=== PATIENT | male | born 1990 | race Caucasian/White ===

== ENCOUNTER → 2018-02-03 14:09 | Outpatient (CLI) | payer BC, SELFPAY ==
[2018-02-03 11:25] VITALS: BMI 40.1
--- OUTSIDE RECORDS SUMMARY | 2018-03-31 23:52 | XMS RPT_ITS ---
:1990 Author Organization OHIP Care Team Providers Name Role Phone NO, DOCTOR ON Consulting Unavailable MERCEDES TREVINO MD Primary Care Unavailable MERCEDES TREVINO MD Attending Unavailable MERCEDES TREVINO MD Admitting Unavailable DR AVI JADE Admitting Unavailable YASMANY, DR AVI Lazo Attending Unavailable FEDE ORTEGA MD Referring Unavailable DR AVI JADE Primary Care Unavailable FEDE ORTEGA MD Consulting Unavailable PROVIDER, UNKNOWN Consulting Unavailable PROVIDER, UNKNOWN Consulting Unavailable PROVIDER, UNKNOWN Consulting Unavailable FEDE ORTEGA MD Admitting Unavailable FEDE ORTEGA MD Attending Unavailable FEDE ORTEGA MD Primary Care Unavailable FEDE ORTEGA MD Consulting Unavailable PROVIDER, UNKNOWN Consulting Unavailable PROVIDER, UNKNOWN Consulting Unavailable PROVIDER, UNKNOWN Consulting Unavailable RODRICK, NAVA PAC Admitting Unavailable RODRICK, NAVA PAC Attending Unavailable RODRICK, NAVA PAC Primary Care Unavailable FEDE ORTEGA MD Consulting Unavailable PROVIDER, UNKNOWN Consulting Unavailable PROVIDER, UNKNOWN Consulting Unavailable PROVIDER, UNKNOWN Consulting Unavailable Wesley Briseno Attending Unavailable Wesley Briseno Attending Unavailable Wesley Briseno Referring Unavailable PROBLEMS PROBLEMS DATE TYPE CONDITION / CODE ATTENDING STATUS SOURCE 02/03/2018 Unknown J02.9 - Acute Wesley Briseno Active [facility] pharyngitis, Community unspecified / Hospital J02.9(ICD-10) Repository 04/23/2017 Principle Encounter for FEDE ORTEGA Active Jaime Pomerene Diagnosis screening for [facility] lipoid disorders / Hospital I69516(ICD-10) Repository 04/23/2017 Secondary Encounter for FEDE ORTEGA Active Jaime Pomerene Diagnosis screening for [facility] diabetes mellitus / Hospital Z131(ICD-10) Repository 04/23/2017 Secondary Encounter for other FEDE ORTEGA Active Jaime Pomerene Diagnosis specified special [facility] examinations / Hospital Z0189(ICD-10) Repository 03/30/[address] AVI JADE Active Jaime Pomerene Diagnosis dependence, [facility] unspecified, Hospital uncomplicated / Repository R09948(ICD-10) 03/30/2017 Admitting Diarrhea, DR AVI JADE Active Jaime Pomerene Diagnosis unspecified / [facility] R197(ICD-10) Hospital Repository 03/30/2017 Principle Diarrhea, DR AVI JADE Active Jaime Pomerene Diagnosis unspecified / [facility] R197(ICD-10) Hospital Repository 03/30/2017 Secondary Vomiting, DR AVI JADE Active Jaime Pomerene Diagnosis unspecified / [facility] R1110(ICD-10) Hospital Repository 03/30/[address] AVI JADE Active Jaime Pomerene Diagnosis abdominal pain / [facility] R109(ICD-10) Hospital Repository 03/19/2017 Admitting Pain in left hip / ANDREA, Active Jaime Pomerene Diagnosis S22173(ICD-10) MERCEDES TAN [facility] Repository 03/19/2017 Principle Strain of muscle, ANDREA, Active Jaime Pomerene Diagnosis fascia and tendon MERCEDES TAN [facility] of left hip, Hospital initial encounter / Repository L19619U(ICD-10) PROCEDURES PROCEDURES No Procedure Records FoundRESULTS RESULTS Observed: 02/03/2018 Status: F Source: [place] SOSA, R/O STREP A 2:43 PM [facility] REPOSITORY ROSALINE Culture No Streptococcus group A isolated. * This cultures intended use is to screen for Beta Streptococcus A only. All other pathogens and potential pathogens will not be screened for or reported. If a complete workup of all potential pathogens is indicated an order for a routine throat culture is required. Performed By: #### M100.010 #### [facility] [place], [address] URGENT CARE VISIT Observed: 02/03/2018 Status: F Source: [place] REPORT 11:52 AM [facility] REPOSITORY [facility] [address] [place] [address] OFFICE VISIT Date of Service: 02/03/18 MR#: [id number] Acct: [id number] Name: ARLETTE CHRISTIANSON Rep #: [id number] : 1990 Provider: Wesley GALLEGOS Age/Sex: 27/M [place] [facility] Status: Signed Intake Vital Signs02/03/18 Height 6 ft 1 in 02/03/18 Weight: 304 lb 02/03/18 Body Mass Index (BMI) 40.1 02/03/18 Blood Pressure 130/90 H 02/03/18 Blood Pressure Location Lt brachial 02/03/18 Blood Pressure Position Sitting Intake Visit Reasons: URI SYMPTOMS Chief Complaint: sore throat Commercial Administrator Required: No Accompanied by: girlfriend Is patient in pain?: No Allergies No Known Allergies Allergy (Unverified 02/03/18 11:26) Medications meloxicam 7.5 mg tablet 7.5 mg PO DAILY 02/03/18 [History Confirmed 02/03/18] PFSH Medical History History of undescended testicle (Acute) Surgical History History of surgical procedure on eye proper using laser (Acute) Family History Other Diabetes Hypertension Multiple sclerosis Social History Smoking Status: Current every day smoker alcohol intake: current HPI HPI Chief Complaint: sore throat Details: ARLETTE CHRISTIANSON, is a 27 M who presents to the office today for initial evaluation approximately 48-hour history of sore throat, chills, congestion. No complaints of fever, sweats, rash, cough, chest pain/shortness of breath. Patient is a non-smoker, noting his live in girlfriend has similar symptoms. No ajkr-gnt-hdcicjf products have been tried to assist with symptoms. He notes no other associated symptoms and no other alleviating or aggravating factors. ROS Const Constitutional: Positive for other (ROS negative x10 other than as noted above) Exam Const General: cooperative, healthy appearing, no acute distress Nutritional Appearance: obese Orientation: alert, awake, oriented x3 HENMT Head: normal to inspection Ears: hearing grossly normal bilaterally, external ears normal, TM's normal bilaterally, EAC's normal Nose: external nose normal, nares normal, septum normal, no nasal discharge Face and sinus: normal facial exam, face symmetric, sinuses nontender Mouth: oral mucosae normal, lip normal, tongue normal Teeth and gingiva: gingiva normal, dentition normal Throat: uvula midline, posterior oropharynx normal, no postnasal drainage, abnormal tonsil bilaterally hypertrophy 2+ (Rapid strep test today negative therefore culture sent to lab for further evaluation) Eyes General: appearance normal, both eyes and all related structures Neck Neck: normal visual inspection, full ROM, no lymphadenopathy, no meningeal signs, supple Neck mass: No Thyroid: thyroid normal Lymphatic: no lymphadenopathy noted Chest Chest palpation AND inspection: normal inspection of the chest Resp Effort AND Inspection: normal respiratory effort, able to speak in complete sentences Auscultation: Bilateral: Clear to Auscultation Cardio Palpation: normal PMI Rate: regular rate Rhythm: regular rhythm Heart Sounds: S1 normal, S2 normal, no gallops, no murmurs, no rubs Pulses: radial pulses present GI Inspection: normal to inspection Palpation: soft, no hepatosplenomegaly Skin General: no rashes or lesions noted Neuro General: alert, awake, oriented x3, gait normal Cognition: normal cognition Speech: speech normal Gait: normal gait Motor: muscle tone normal throughout Sensory Exam: no sensory deficits noted Psych Appearance: grossly normal Mental Status: mental status grossly normal Mood: congruent mood Affect: normal affect Speech and Movement: speech and movement normal Attitude: cooperative Thought Process: normal Thought Content: normal Judgment: judgment good Results BMSRAPIDSTREPA Office Rapid Strep A Negative Last Edit by Constance Mcnally on 02/03/18 11:39 Assessment AND Plan Problems 1. Pharyngitis J02.9 Plan Patient aware today's rapid strep test is negative therefore culture sent to lab for further evaluation. Clear fluid, rest, Advil/Tylenol, saltwater gargles as needed for symptom relief. Follow-up PCP in 5-7 days should symptoms not improve, sooner should symptoms worsen or any other concerns develop. Patient states acknowledging understanding all the above. This note was generated with [employer] software. It may contain incorrect words, spelling, and punctuation that were not noted in checking the note before signing. Orders Orders: Coding Level of Care Code Off vis,new,level 3 Diagnoses Pharyngitis J02.9 02/03/18 1152 <Electronically signed by Wesley GALLEGOS> Date Wesley GALLEGOS Cosigner Signature: Date (if applicable) CC: EMERGENCY REPORT Observed: 09/05/2017 Status: F Source: [facility] 7:46 PM [facility] EMERGENCY DEPARTMENT REPORT NAME NUMBER SEX AGE ADMIT DISC TYPE MED.RECORD# MEGHAN Pang [id number] M 26 03/19/17 03/19/17 E.RHima [id number] ROOM:ER-E DATE OF :1990 PHYSICIAN NO.:[id number] PHYSICIAN NAME:PAMELA TREVINO MD PHYSICIAN: FAMILY PHYSICIAN: NO DOCTOR CHIEF COMPLAINT: Hip pain on left side. HISTORY OF PRESENT ILLNESS: The patient has soreness and aching to the left hip in certain positions. No severe radiation to his back or legs. He has had x-rays a few months ago for similar pain. He works a factory job. He describes the pain as sharp and aching. It is worse with certain positions and better at rest and with laying down. No numbness or tingling. No weakness of the leg. He now recalls he was helping his father move, and he was doing heavy lifting up and down steps with some of the heavy furniture pieces. His pain is sharp and aching, worse with internal and external rotation and certain positions. PAST MEDICAL HISTORY: See the nursing notes. SOCIAL HISTORY: He does smoke. He does not drink. PHYSICAL EXAMINATION: On evaluation, our gentleman is EOMI, PERRL. Mentation is awake and alert. Vital signs are stable in all areas. He is 290 pounds. Reflexes of the knees and ankles are good. Pulses to the feet and warmth to the feet are good. Hip flexion causes mild pain. Hip flexion with internal rotation causes significant sharp pain. When he stands, he can hip flex to a mild degree without pain. Abduction does not hurt much but slightly. When he stretches and pushes his foot behind him, the front hip flexor stretch increases the pain. He has no difficulty ambulating. The right hip is unremarkable. His belly is benign without pain on palpation or distress on palpation. EMERGENCY DEPARTMENT COURSE AND TREATMENT: I think the gentleman has a strain of his hip flexors, likely from carrying furniture up and down steps. He would be squatting to pick these up and then go up and down the ramp and steps. I think the climbing and the decelerating down the ramp increased his pain. X-rays have been recent and were negative. DIAGNOSIS: Left hip flexor strain. PLAN/DISPOSITION: We will plan to discharge with Tylenol, Motrin and a few Flexeril for muscle soreness. Heating pad and recheck with his doctor next week. Off work today. D: Pamela Trevino MD TD: 11:28 JOB #: [id number] Electronically signed by: PAMELA TREVINO MD 09/05/17 19:46 Transcribed by: martina 03/20/2017 08:43 EMERGENCY ROOM REPORT MEGHAN Pang 1 EMERGENCY DEPARTMENT Observed: 04/02/2017 Status: F Source: [facility] SUMMARY 7:48 AM [facility] EMERGENCY DEPARTMENT SUMMARY NAME NUMBER SEX AGE ADMIT DISC TYPE MED.RECORD# MEGHAN Pang [id number] M 26 03/30/17 03/30/17 E.R. [id number] ROOM:ER-I DATE OF :1990 PHYSICIAN NO.:[id number] PHYSICIAN NAME:ZARINA Jade M.D. PHYSICIAN:Constantino Ortega M.D. HISTORY OF PRESENT ILLNESS: The patient came in. The patient was not feeling well. He had diarrhea around 10 a.m. and then he started having vomiting. He had some abdominal discomfort, some body aches, chills, occasional headache, and just not feeling well and he presents to the emergency department. He has had hip pain. PAST MEDICAL HISTORY: Unremarkable. PAST SURGICAL HISTORY: He has had a descended testicle when he was a child. SOCIAL HISTORY: He does smoke. He does drink alcohol occasionally. REVIEW OF SYSTEMS: Ten systems reviewed and negative except as mentioned above. PHYSICAL EXAMINATION: The patient is afebrile. Pulse 102, respirations 16, blood pressure 133/76, and pulse ox 98% on room air. Head is normocephalic and atraumatic. Eyes: Pupils are equal, round, and reactive to light. Extraocular muscles intact. Nares are patent. Throat has adequate moisture. Uvula is midline. Neck is supple without petechiae or rash. Heart without murmur. S1 equals S2. No S3 or S4 appreciated. Lungs are clear to auscultation bilaterally. No rales, rhonchi, or retractions. Abdomen is soft, nontender, and nondistended. Skin is warm and dry. EMERGENCY DEPARTMENT COURSE AND TREATMENT: The patient was given Zofran. He kept a bottle of Gatorade down. He feels better, not totally well, but feels much better. DIAGNOSES: 1. Vomiting and diarrhea. 2. Abdominal pain 3. Probable viral syndrome. PLAN/DISPOSITION: He is going to go home. I did write him off of work for tomorrow and the next day. He was told to stop smoking. He was discharged in stable condition. D: Shaan Almodovar DO TD: 00:11 JOB #: [id number] Electronically signed by: TUCKERNAMMelania 04/02/17 07:47 Transcribed by: padilla 03/31/2017 20:08 ELECTRONICALLY SIGNED BY: ZARINA Almodovar D.O. 04/02/17 07:47 ALLERGIES ALLERGIES DATE TYPE / CODE NAME / CODE REACTION SEVERITY SOURCE 02/03/2018 Drug No Known Unknown [facility] [place] Allergy/124718879(S Allergies/F0019 [facility] [place]OMED [place]) [address](RXNORM) Hospital Repository Miscellaneous No Known Drug Moderate Jaime Pomereverena Allergy/072059619(S Allergies (Severity [facility] NOMED CT) Modifier) Hospital (Qualifier Repository Value) ENCOUNTERS ENCOUNTERS ADMIT/DISCHARGE ACCOUNT ADMITTING ENCOUNTER LOCATION SOURCE NUMBER CLASS 02/03/2018 [id number] Ambulatory [facility] [place] [facility] [place] [facility] ing:LABSPEC Repository 02/03/2018/ [id number] Ambulatory BMSBuilding:B [facility] 8 3 [facility] Repository 08/27/2017 [id number] RODRICK, Ambulatory Jaime ROMAN [facility] Repository 04/23/2017 [id number] JORDAN, Ambulatory [facility] FEDE TAN [facility] Repository 03/30/2017/ [id number] DR AVI JADE [facility] [place] [address] C oom: ERBed: I [facility] Repository 03/19/2017/ [id number] ANDREA, Emergency [address] [place] [address] 8 MERCEDES TAN oom: ERBed: E [facility] Repository PAYERS PAYERS ENCOUNTER GUARANTOR PAYER SUBSCRIBER SOURCE 02/03/2018 ARLETTE M Primary ARLETTE V[place] [id number] Insurance:ANTHEMPolicy TANKERSLEYDOB: [facility] JOAN WHITE Number: [id number], [id number] [place]ository [place] [address]Dsf: ve Date:2734-46-35AQ [address]QR[address], [facility]) [id number]: 02/03/2018 Secondary NOT GIVENUNK [facility] Insurance:SELF PAY [facility] Number: Effective Repository Date:2018-02-03 02/03/2018 ARLETTE M Primary ARLETTE Amayaoster [id number] Insurance:ANTHEMPolicy TANKERSLEYDOB: [facility] Number: [id number] [facility], [id number] [place]ository [place] [address]Mcm: ve Date:9706-66-51HA [address]DGGEZYU, [facility]) [address]NT: 02/03/2018 Secondary NOT GIVENUNK [facility] Insurance:SELF PAY [facility] Number: Effective Repository Date:2018-02-03 08/27/2017 ARLETTE Primary ARLETTE Brock TANKERSLEYDOB: Insurance:ANTHEM BLUE TANKERSLEYDOB: [facility] [id number] [employer] [id number] [facility] Repository [facility], Number: [place], [place] [address]Gnm: [id number] [place] [id number] ve Date:Plan Name:B2 () 04/23/2017 ARLETTE Primary ARLETTE Brock TANKERSLEYDOB: Insurance:MEDICAL TANKERSLEYDOB: [facility] Number: [id number] [facility] [id number] [place] Repository [facility], Date:Plan Name:[facility] [address]M[place]: [place] [id number] () 03/30/2017 ARLETTE Primary ARLETTE Brock TANKERSLEYDOB: Insurance:SHELLEY BANKS TANKERSLEYDOB: [facility] [id number] [place] [address] Repository [facility], Number: RDSHREVMelania [facility] [id number]: [id number] [id number] Date:Plan Name:V1 () 03/30/2017 Secondary ARLETTE Brockne Insurance:ONEIDA TANKERSLEYDOB: [facility] [id number] [place] [address] Repository Number: [place], [id number] [address] Date: 03/19/2017 ARLETTE Pang Primary ARLETTE Brock TANKERSLEYDOB: Insurance:SHELLEY BANKS TANKERSLEYDOB: [facility] [id number] [place] [address] Repository [facility], Number: RDSHREVMelania [facility] [id number]: [id number] Date:Plan Name:V1 () 03/19/2017 Secondary ARLETTE Altamiranoerene Insurance:ONEIDA TANKERSLEYDOB: [facility] [id number] [place] [address] Repository Number: STMILLEJEANINE, [id number] [place] [address] Date:
== END ==
PROVIDERS: Referring Provider Physician Assistant; Visit Provider Physician Assistant
DX: J02.9 Acute pharyngitis, unspecified (principal)
CPT/HCPCS: 87081

== ENCOUNTER 2018-10-18 18:53 | Emergency (ER) | payer BC, SELFPAY ==
[2018-02-03 11:25] VITALS: BMI 40.1
[2018-10-18 18:54] VITALS: BP 153/79; PULSE 105; RESP 18; TEMP 36.5; O2SAT 96; BMI 39.5
--- NOTE | 2018-10-18 20:52 | ED.DCSUM_ITS ---
History of Present Illness Chief Complaint: Itching Informant: Patient Onset: Today Context: Sudden Onset Timing: Continuous Quality: Generalized itching Location: Generalized Current Severity: Moderate Worsened by: Nothing Relieved by: Nothing Associated Symptoms: No associated symptoms Narrative: Patient presents with generalized itching. He denies liver disease. Denies change in color his urine or stool. He denies discoloration of his eyes or skin. He has not been bit by anything. He did not have any to eat that may have caused this to his knowledge. He denies swelling of his lips, tongue or throat. He denies shortness of breath. He denies nausea vomiting. Denies diarrhea. Denies orthostatic symptoms. Denies cardiac respiratory symptoms. Prior similar symptoms: No Recent Illness/Hospitalization: No - Past Medical History (1) No significant past medical history Status: Acute Past Medical History - Allergies and Home Meds Allergies/Adverse Reactions: Allergies No Known Allergies Allergy (Unverified 02/03/18 11:26) Prior records reviewed: No Past Medical History: None Surgical History: no surgical history Lives: Alone Smoking Status: Current every day smoker Alcohol: Occasional Drugs: None Review of Systems General: Denies: Chills, Fever, Sweats Eyes: Denies: Visual changes - bilaterally, Diplopia ENT: Denies: Rhinorrhea, Sore throat Cardiovascular: Denies: Chest pain, Palpitations Respiratory: Denies: Dyspnea, Cough, Dyspnea on exertion Gastrointestinal: Denies: Abdominal pain, Nausea, Vomiting, Diarrhea, Melena, Hematochezia Genitourinary: Denies: Dysuria, Hematuria, Frequency Musculoskeletal: Denies: Back pain, Extremity Pain Skin: Reports: - - Generalized itching. Denies: Rash, Abscess, Abrasions, Wounds Neurological: Denies: Headache, Weakness, Numbness Hematologic: Denies: Easy bruising, Easy bleeding Allergy: Denies: Uticaria, Swelling of the mouth, Swelling of the tongue Physical Exam Vital Signs/Narrative: Vital Signs Temp Pulse Resp BP Pulse Ox 10/18/18 18:54 97.7 F L 105 H 18 153/79 H 96 Inital Vital Signs reviewed: Yes General: Well nourished, Well developed, No Acute Distress Head: Normocephalic, Atraumatic Eyes: Perrl, EOMI ENT: Moist mucous membranes, No rhinorrhea, TM's clear, - - Trachea is midline. There is no stridor. There is no evidence of angioedema. Neck: Supple, Nontender Cardiovascular: Regular rate, Regular rhythm, No murmurs Respiratory: No distress, CTA bilaterally, Chest nontender Abdomen: Soft, Nontender, Nondistended, Normal bowel sounds Back: Nontender, Normal Inspection Extremities: Nontender, No edema Skin: Normal color, No rash, - - Areas of excoriation from itching. There is redness uncertain whether it is because he has been itching or reaction. There is no hives. Neurological: Alert, Oriented x3, Cranial nerves II-XII grossly intact, Normal Strength, Normal Sensation Psychological: Normal affect, Normal Mood Diagnostic/Tx/Re-eval Laboratory Results 10/18/18 10/18/18 20:30 20:30 WBC 9.4 RBC 4.84 Hgb 15.0 Hct 42.0 MCV 86.8 MCH 31.0 MCHC 35.7 RDW Std Deviation 37.5 RDW Coeff of Jemal 11.9 Plt Count 250 MPV 10.1 Immature Gran % (Auto) 0.300 Neut % (Auto) 66.5 Lymph % (Auto) 25.6 Rusk % (Auto) 5.8 Eos % (Auto) 1.3 Baso % (Auto) 0.5 Absolute Neuts (auto) 6.3 Absolute Lymphs (auto) 2.41 Nucleated RBC % 0 Sodium 138 Potassium 3.9 Chloride 107 Carbon Dioxide 26.0 Anion Gap 5 BUN 15 Creatinine 1.10 Estim Creat Clear Calc 111.98 Est GFR (MDRD) Af Amer 101 Est GFR (MDRD) Non-Af 84 BUN/Creatinine Ratio 13.6 Glucose 93 Calcium 8.7 Total Bilirubin 0.60 AST 26 ALT 46 Alkaline Phosphatase 91 Total Protein 7.7 Albumin 4.0 Globulin 3.7 Albumin/Globulin Ratio 1.1 Laboratory evaluations unremarkable. - Medical Decision Making CBC was obtained to assess for eosinophilia. Conference of metabolic panel was obtained to assess liver test to determine if his bilirubin is elevated etc. He was treated with IV Pepcid and Benadryl. Will reassess in 60 minutes. Patient was reassessed at 2230. His rash and itching is resolved. Patient was instructed to follow-up with his doctor. He states he is presently between doctors. He was instructed to contact human resources determine who is on his insurance panel. He was told he needs to be tested to determine what caused the reaction. ED Disposition - Plan for ED Patient: Disposition: Home or Assisted Living Diagnosis: Pruritic erythematous rash Instructions: ALLERGIC REACTION, Other (General) Prescriptions: DiphenhydrAMINE [Benadryl] 25 mg PO 4X/DAY #10 cap Transmission Status: Pending to [facility]/pharmacy #[id number] Famotidine [Pepcid] 20 mg PO BID #10 tab Transmission Status: Pending to [facility]/pharmacy #[id number] Additional Instructions: Your prescription was electronically transmitted to [facility] pharmacy located on back [facility]. Contact human resources to determine who is on your insurance plan to have allergy testing to determine what caused your red itchy rash.
[2018-10-18] MEDS: DiphenhydrAMINE 50 MG/ML Syringe 25 MG IV (20:55)
[2018-10-18 21:02] LABS: Absolute Lymphocyte Count 2.41 X10^3/uL (0.83-4.51); Absolute Neutrophil Count 6.3 X10^3/uL (2.0-7.7); Basophil# 0.05 X10^3/uL; Basophil% 0.5 % (0-1); Eosinophil# 0.12 X10^3/uL; Eosinophils% 1.3 % (0-5); Lymphocyte # 2.41 X10^3/ul (4.0); Lymphocyte % 25.6 % (19-41); Mean Corp Hgb Conc 35.7 g/dL (32-36); Mean Corpuscular Volume 86.8 fL (80-94); Mean Platelet Vol. 10.1 fl (6.2-12.0); Monocyte# 0.55 X10^3/uL; Monocyte% 5.8 % (0-10); NRBC Flagged by Analyzer 0 % (0-5); Neutrophil # 6.27 X10^3/uL (2.7-7.7); Neutrophil % 66.5 % (47-70); Platelet Count 250 K/mm3 (150-450); RBC Distribution Width CV 11.9 % (11.6-14.6); RBC Distribution Width SD 37.5 fl (35.1-43.9); Red Blood Count 4.84 M/mm3 (4.6-6.2); White Blood Count 9.4 K/mm3 (4.4-11.0)
[2018-10-18 21:13] LABS: ALB/GLOB Ratio 1.1 RATIO (0.9-2.4); AST(SGOT) 26 U/L (15-37); Alanine Aminotransfer ALT/SGPT 46 U/L (16-61); Alkaline Phosphatase 91 U/L (45-117); Anion Gap 5 (5-15); BUN 15 mg/dL (7-18); BUN/Creat Ratio 13.6 RATIO (10-20); Calcium,Total 8.7 mg/dL (8.5-10.1); Chloride 107 mmol/L (98-107); EST Glomerular Filtration Rate 84 mL/min (>60); Est Glom Filt Rate - Afr Amer 101 mL/min (>60); Estimated Creatinine Clearance 111.98 ml/min; Globulin 3.7 g/dL (2.2-4.2); Glucose 93 mg/dL (74-106); Potassium 3.9 mmol/L (3.5-5.1); Protein, Total 7.7 g/dL (6.4-8.2); Sodium Level 138 mmol/L (136-145)
[2018-10-18 22:55] VITALS: RESP 18
== END 2018-10-18 22:56 | disposition home or self-care (01) ==
PROVIDERS: Emergency Provider Emergency Medicine
DX: L29.9 Pruritus, unspecified (principal); R21 Rash and other nonspecific skin eruption; F17.200 Nicotine dependence, unspecified, uncomplicated
CPT/HCPCS: 80053; 85025; 96374; 96375; 99283; A4216; J3490

== ENCOUNTER → 2019-03-30 11:43 | Outpatient (CLI) | payer BC, SELFPAY ==
[2019-03-30 11:33] VITALS: BMI 39.5
--- NOTE | 2019-03-30 11:44 | RAD_ITS ---
STUDY: X-RAY - RIGHT ANKLE REASON FOR EXAM: Pain, no recent injury. TECHNIQUE: 3 view(s) of the ankle. COMPARISON: None. FINDINGS: Normal visualized distal tibia and fibula. Normal medial and lateral malleoli. There is mild widening of the lateral aspect of the tibiotalar articulation on the oblique view. There are posterior and plantar calcaneal enthesophytes. Otherwise, unremarkable visualized talus and calcaneus. The visualized subtalar, talonavicular, calcaneocuboid and tarsal articulations are normal. The soft tissue structures are unremarkable. RAD/Ankle min 3 Views IMPRESSION: Mild widening of the lateral aspect of the tibiotalar articulation on the oblique view, possibly indicating instability. Calcaneal enthesopathy. Electronically Signed: Reed Garcia MD at 13:54 EST Tel , Service support ,
--- NOTE | 2019-03-30 11:44 | RAD_ITS ---
STUDY: X-RAY - RIGHT FEMUR REASON FOR STUDY: Pain, history of fracture at 2 years of age. TECHNIQUE: 2 view(s) of the femur. COMPARISON: None. FINDINGS: Normal visualized femur. Normal visualized soft tissue structure. RAD/Femur Min 2 Views IMPRESSION: Normal x-ray examination of the right femur. Electronically Signed: Reed Garcia MD at 13:32 EST Tel , Service support ,
== END ==
LOC: HPRAD 11:44
PROVIDERS: Referring Provider Orthopaedic Surgery; Visit Provider Orthopaedic Surgery
DX: M79.604 Pain in right leg (principal); M25.571 Pain in right ankle and joints of right foot
CPT/HCPCS: 73552; 73610

== ENCOUNTER 2020-10-24 09:39 | Emergency (ER) | payer OTHER, SELFPAY ==
[2020-10-24 09:40] VITALS: BP 161/72; PULSE 68; RESP 14; TEMP 36.3; O2SAT 97; BMI 40.7
--- NOTE | 2020-10-24 10:13 | CT_ITS ---
STUDY: CT BRAIN WITHOUT CONTRAST REASON FOR EXAM: Male, 29 years old. Head injury. RADIATION DOSAGE (If Supplied By Facility): CTDIvol = ( 44.99 ) mGy, DLP = ( 779.24 ) mGycm TECHNIQUE: Transaxial CT imaging of the brain was performed without administration of intravenous contrast material. Individualized dose optimization techniques were used for this CT. COMPARISON: No relevant priors. FINDINGS: Normal soft tissue structures. Normal calvarium. Normal size ventricles and extra-axial spaces for the patient''s age. Normal white matter tracts of the cerebral hemispheres. Normal basal ganglia and thalami. Normal brainstem. Normal cerebellum. There is no intracranial hemorrhage. There are no findings of an acute ischemic infarction. There is a 1.7 cm polyp or retention cyst along the anterior inferior aspect of the left maxillary sinus. CT/Brain/Head without Contrast IMPRESSION: Normal unenhanced CT scan of the brain. Electronically Signed: Krishna Guzman MD at 11:18 EDT , Service support ,
--- NOTE | 2020-10-24 10:15 | EDS_ITS ---
HPI History of Present Illness Chief Complaint: Head Injury Informant: patient Narrative Narrative: 29-year-old male presents to the emergency department following a head injury at work. Patient states that he was lifting a piece of metal up to carried over to his head when it struck him just above his safety glasses in the left eyebrow. This resulted in laceration. Since that time he has felt a headache, fatigue, light sensitivity. The wound was glued by medical staff at work. No nausea or vomiting. No loss of consciousness. [facility] Medical History History of undescended testicle Home Medications multivitamin [Multi-Vitamin] 1 tab PO DAILY 10/24/20 [History Last Taken Unknown] Allergy/AdvReac Type Severity Reaction Status Date / Time No Known Allergies Allergy Verified 10/24/20 09:42 Family History (Updated 02/03/18 @ 11:29 by Constance Mcnally) Other Diabetes Hypertension Multiple sclerosis Surgical History History of surgical procedure on eye proper using laser Social History Smoking Status: Current every day smoker tobacco type: cigarettes alcohol intake: current ROS ROS ED ROS Narrative Generalized fatigue Constitutional Constitutional ED: Denies chills or weight loss Eyes Eyes: Reports other Details: Light sensitivity ; Denies change in vision or diplopia ENT ENT ED: Denies ear pain, rhinorrhea or sore throat Cardiovascular Cardiovascular: Denies chest pain, orthopnea, palpitations or racing heartbeat Respiratory/Chest Respiratory/Chest: Denies cough, dyspnea or orthopnea Gastrointestinal Gastrointestinal: Denies abdominal pain, diarrhea, nausea or vomiting Genitourinary Genitourinary ED: Denies dysuria, hematuria or urinary frequency Musculoskeletal Musculoskeletal: Denies arthralgias or myalgias Integumentary Reports other Details: Laceration see HPI ; Denies abscess or rash Neurologic Neurologic: Reports headache(s); Denies weakness Psychiatric Psychiatric: Denies anxiety, depression, suicidal ideation or suicidal thoughts Endocrine Endocrinology: Denies polydipsia, polyphagia or polyuria Allergic/Immunologic Allergic/Immunologic ED: Denies mouth swelling, tongue swelling or urticaria EXAM Physical Exam Const Vital Signs: 10/24/20 09:40 10/24/20 09:51 Temperature 97.3 F L Temperature Source Temporal Pulse Rate 68 Respiratory Rate 14 Respiratory Effort Normal Non-Labored Respiratory Depth Normal Respiratory Pattern Normal Blood Pressure 161/72 H Blood Pressure Mean 101 Pulse Ox 97 Oxygen Delivery Method Room Air Room Air Positive well nourished and well developed General Appearance ED: well developed HEENT Reports normocephalic, head/scalp atraumatic, TM's clear and moist mucous membranes HEENT Narrative: There is a 2 cm linear laceration in the left eyebrow that has been glued with good wound edge approximation. trauma Tympanic Membrane ED: Yes TM's clear Eyes PERRL and EOMs intact bilaterally Neck no lymphadenopathy, supple and no JVD Resp normal respiratory effort and clear to auscultation bilaterally Cardio regular rate, regular rhythm and no murmurs GI normal to inspection, nondistended, normoactive bowel sounds and non-tender Palpation: soft Back/Spine no CVA tenderness and normal ROM Extremity normal to inspection General Extremety ED: Negative for edema General Extremity: Negative for edema Neuro oriented x3 and CN's II-XII intact bilaterally Sensorium / Orientation: alert Motor Exam: strength 5/5 throughout Psych mental status grossly normal Mood & Affect: Negative for depressed or tearful Skin no rashes or lesions noted and no wounds MDM MDM MDM Narrative Medical decision making narrative: CT the brain was obtained. This was negative for intracranial hemorrhage or fracture. Patient will be discharged home instructions to rest. Follow-up with Workmen's Comp. Radiography Diagnostic Testing: Radiology Impression Brain CT 10/24/20 10:13 IMPRESSION: Normal unenhanced CT scan of the brain. Electronically Signed: Krishna Guzman MD at 11:18 EDT , Service support , Discharge Plan Triage Chief Complaint: Head Injury ED Provider: Ry Figueroa Dx/Rx/DC Orders Clinical Impression: Facial laceration, Concussion without loss of consciousness Instructions: ED Concussion, ED Laceration: Skin Adhesive Prescriptions: No Action multivitamin [Multi-Vitamin] Tablet 1 tab PO DAILY RF: 0 Primary Care Provider: Care Physician,No Primary Referrals: Care Physician,No Primary [Primary Care Provider] - Clinic,NOW [NON-STAFF] - As soon as possible Disposition Disposition: Home, Self Care
== END 2020-10-24 11:33 | disposition home or self-care (01) ==
LOC: ED 10:36
PROVIDERS: Emergency Provider Emergency Medicine
DX: S01.112A Laceration without foreign body of left eyelid and periocular area, initial encounter (principal); S06.0X0A Concussion without loss of consciousness, initial encounter; W26.8XXA Contact with other sharp object(s), not elsewhere classified, initial encounter; Y93.9 Activity, unspecified; Y92.9 Unspecified place or not applicable; F17.210 Nicotine dependence, cigarettes, uncomplicated
CPT/HCPCS: 70450; 99282

== ENCOUNTER 2022-07-31 04:38 | Emergency (ER) | payer OTHER, SELFPAY ==
[2022-07-31 04:39] VITALS: BP 153/80; PULSE 86; RESP 16; TEMP 35.8; O2SAT 100; BMI 44.0
--- NOTE | 2022-07-31 04:54 | EX.ED.VIS.EY ---
HPI History of Present Illness Chief Complaint: Eye Problem Informant: patient Narrative Narrative: swelling drainage to right eye since yesterday. States swelling has started to improve however increasing drainage. No fevers. States noticed a film on his vision. Denies pain or photophobia. Does not wear contacts or glasses. No fevers. Prior similar symptoms: No PFSH PFSH Medical History History of undescended testicle Home Medications multivitamin 1 tab PO DAILY 10/24/20 [History Last Taken Unknown] Allergy/AdvReac Type Severity Reaction Status Date / Time No Known Allergies Allergy Verified 07/09/21 11:24 Family History Other Diabetes Hypertension Multiple sclerosis Surgical History History of surgical procedure on eye proper using laser Social History Smoking Status: Current every day smoker tobacco type: cigarettes alcohol intake: current ROS ROS ED Constitutional Constitutional ED: Denies chills, fever(s) or sweats Eyes Eyes: Reports blurry vision and other Details: Swelling right eye ; Denies change in vision ENT ENT ED: Denies dysphagia or sore throat Cardiovascular Cardiovascular: Denies chest pain, leg edema, palpitations or racing heartbeat Respiratory/Chest Respiratory/Chest: Denies cough, dyspnea or dyspnea on exertion Gastrointestinal Gastrointestinal: Denies abdominal pain, diarrhea, nausea or vomiting Genitourinary Genitourinary ED: Denies dysuria, hematuria or urinary frequency Musculoskeletal Musculoskeletal: Denies back pain, extremity pain or neck pain Integumentary Denies rash or wounds Neurologic Neurologic: Denies headache(s), paresthesias or weakness EXAM Physical Exam Const Vital Signs: 07/31/22 04:39 Temperature 96.5 F L Temperature Source Temporal Pulse Rate 86 Respiratory Rate 16 Blood Pressure 153/80 H Blood Pressure Mean 104 Pulse Ox 100 Oxygen Delivery Method Room Air Positive well nourished and well developed General Appearance ED: well developed and NAD HEENT Reports moist mucous membranes normocephalic and atraumatic Eyes PERRL and EOMs intact bilaterally Eyes Narrative: Right eye: Swelling to the upper lids, erythema of the sclera there was drainage and film to the right eye. No hyphema. Visual acuity 20/30 OD, 20/20 OS, 20/20 OU Neck no lymphadenopathy and supple General: Negative for tenderness Chest Wall Chest: Negative for tenderness Resp normal respiratory effort and normal air movement Effort and Inspection: symmetric chest movement; Negative for respiratory distress Cardio regular rate, regular rhythm and no murmurs Peripheral Pulses: pulses 2+ throughout GI normal to inspection, nondistended, normoactive bowel sounds and non-tender Palpation: Negative for guarding or rebound tenderness present Back/Spine no CVA tenderness and no thoracic nor lumbar tenderness Extremity normal to inspection General Extremety ED: Negative for edema or tenderness General Extremity: Negative for edema Neuro oriented x3 and no sensory deficits noted Sensorium / Orientation: awake and alert Skin no rashes or lesions noted and no wounds MDM MDM MDM Narrative Medical decision making narrative: Interventions / MDM: Differential diagnosis: Right eye conjunctivitis, right eye blepharitis Diagnosis considered but do not suspect: No clinical glaucoma pupils are not fixed, no pain. My EKG interpretation: N/A Imaging independently reviewed and interpreted by myself: N/A External documents reviewed: N/A Test considered but not ordered:N/A ED course: Presented with conjunctivitis and blepharitis. Visual acuity intact slightly blurry in the right. Started on antibiotic drops of Cipro twice a day. Outpatient follow-up with ophthalmology as needed. Re-evaluation: stable Disposition discussed with patient/family/significant other: Patient Case discussed with consulting clinician: N/A Discharge Plan Triage Chief Complaint: Eye Problem ED Provider: Emery Bragg Dx/Rx/DC Orders Clinical Impression: Acute conjunctivitis of right eye, Blepharitis of right eye Instructions: What Is Blepharitis?, ED Conjunctivitis, Bacterial Prescriptions: No Action multivitamin [Multi-Vitamin] Tablet 1 tab PO DAILY Stand Alone Forms: ED Work / School Excuse [facility] Referrals: García Godwin MD [Med Staff - Active Staff] - 3-5 Days if not improving Care Physician,No Primary [Non-Staff] - Activity Restrictions/Additional Instructions: use antibiotic drops twice a day for the next 7 days. Disposition Disposition: Home, Self Care
[2022-07-31] MEDS: Ciprofloxacin 0.3% 2.5ml Bottle 1 DRP RIGHT EYE (05:26)
[2022-07-31 06:04] VITALS: BP 153/80; PULSE 86; RESP 15
== END 2022-07-31 06:26 | disposition home or self-care (01) ==
PROVIDERS: Emergency Provider Emergency Medicine; Visit Provider Emergency Medicine
DX: H10.31 Unspecified acute conjunctivitis, right eye (principal); F17.210 Nicotine dependence, cigarettes, uncomplicated; H01.003 Unspecified blepharitis right eye, unspecified eyelid
CPT/HCPCS: 99283

== ENCOUNTER 2023-04-11 17:25 | Emergency (ER) | payer OTHER, SELFPAY ==
[2023-04-11 17:26] VITALS: BP 157/84; PULSE 94; RESP 16; TEMP 36.4; O2SAT 98; BMI 42.2
--- NOTE | 2023-04-11 17:44 | EX.ED.DYSGE1 ---
HPI <ROSY Wei - Last Filed: 04/11/23 18:59> History of Present Illness Chief Complaint: Chest Other Narrative Narrative: Patient presenting today due to right upper back pain that he has had for the past few weeks. He reports that the pain is improved with rest and worsened with range of motion, especially of his right upper extremity. He reports that he does do a decent amount of heavy lifting at work. He has had pain similar to this in the past that improved with going to the chiropractor. He has been taking ibuprofen [id number] with some relief of his symptoms. He denies any injury to the area. He denies any history of blood clots, recent surgery/procedures/travel/immobilization. He denies feeling short of breath, he denies chest pain. [facility] <ROSY Wei - Last Filed: 04/11/23 18:59> [facility] Medical History History of undescended testicle Home Medications multivitamin 1 tab PO DAILY 10/24/20 [History Last Taken Unknown] naproxen 500 mg tablet 500 mg PO BID #14 tabs 04/11/23 [Rx Last Taken Unknown] orphenadrine citrate 100 mg tablet,extended release 100 mg PO BID #14 tabs 04/11/23 [Rx Last Taken Unknown] Allergy/AdvReac Type Severity Reaction Status Date / Time No Known Allergies Allergy Verified 04/11/23 17:28 Family History Other Diabetes Hypertension Multiple sclerosis Surgical History History of surgical procedure on eye proper using laser Social History Smoking Status: Current every day smoker tobacco type: cigarettes alcohol intake: current ROS <ROSY Wei - Last Filed: 04/11/23 18:59> ROS ED Constitutional Constitutional ED: Denies chills or fever(s) Cardiovascular Cardiovascular: Denies chest pain Respiratory/Chest Respiratory/Chest: Denies cough, dyspnea or dyspnea on exertion Gastrointestinal Gastrointestinal: Denies abdominal pain, nausea or vomiting Musculoskeletal Musculoskeletal: Reports back pain Integumentary Denies Abrasions or rash Neurologic Neurologic: Denies paresthesias or weakness EXAM <ROSY Wei - Last Filed: 04/11/23 18:59> Physical Exam Const Vital Signs: 04/11/23 17:26 04/11/23 17:49 Temperature 97.5 F L Temperature Source Temporal Pulse Rate 94 Respiratory Rate 16 Respiratory Effort Normal Non-Labored Blood Pressure 157/84 H Blood Pressure Mean 108 Pulse Ox 98 Oxygen Delivery Method Room Air Positive well nourished, well developed and no apparent distress General Appearance ED: well developed HEENT Reports normocephalic and head/scalp atraumatic Mouth ED: Yes moist mucous membranes normal Eyes PERRL and EOMs intact bilaterally Neck full ROM and supple Chest Wall inspection of chest normal Chest Narrative: No tenderness to the right lateral rib cage. No crepitus. Resp normal respiratory effort and clear to auscultation bilaterally Cardio regular rate and regular rhythm GI soft to palpation, non-tender, non-distended and no masses Back/Spine normal ROM and normal to inspection Back/Spine Narrative: Tenderness along the medial aspect of the right scapula and superior right latissimus dorsi muscle. Cervical Spine: Negative for cervical spine tenderness Thoracic Spine / Upper Back: Negative for thoracic spinal tenderness Lumbar Spine / Lower Back: Negative for lumbar spinal tenderness Extremity normal to inspection and full ROM Neuro oriented x3, CN's II-XII intact bilaterally, moves all extremities, no focal motor deficits and no sensory deficits noted Sensorium / Orientation: awake and alert Psych mental status grossly normal and thought process normal Skin no rashes or lesions noted and no wounds <Dr. Brayan Wong MD - Last Filed: 04/11/23 19:06> Physical Exam Const Vital Signs: 04/11/23 17:26 04/11/23 17:49 Temperature 97.5 F L Temperature Source Temporal Pulse Rate 94 Respiratory Rate 16 Respiratory Effort Normal Non-Labored Blood Pressure 157/84 H Blood Pressure Mean 108 Pulse Ox 98 Oxygen Delivery Method Room Air MDM <ROSY Wei - Last Filed: 04/11/23 18:59> MDM MDM Narrative Medical decision making narrative: Patient presenting with pain to his right mid back below the right scapula and along the right medial border of the scapula. He has had pain similar to this in the past, he saw a chiropractor for this with improvement of his symptoms. He has been going to chiropractor over the past week with minimal improvement. Ibuprofen does seem to help. He reported that the pain is worse when he takes a deep breath, however he is PERC negative, this does not sound consistent with a PE. Examination consistent with upper back strain. Pain is improved with rest and worsened with range of motion of his right upper extremity and torso. He will be given a prescription for naproxen and Norflex. I encouraged he follow-up with his PCP, has been given return instructions. He will be discharged with stable condition and is comfortable plan. <Dr. Brayan Wong MD - Last Filed: 04/11/23 19:06> [facility] Treatment and Re-Evaluation Comments:: I have personally performed a face to face assessment of the patient and have reviewed the MARINO Note. I performed a substantive portion of the visit including all aspects of the following. My oconnor findings include: History is worsening pain in the right posterior rib cage below the scapula. [id number]. Lots of lifting at work. Has seen chiropractor for this and had improvement but did not help today. Feels like it is tight. Hurts worse when he takes a deep breath but no chest discomfort or dyspnea. No history of DVT, no symptoms of 1 at this time. No risk factors for that. Exam is reproducible pain in the right posterior mid thoracic area, no crepitance, no sign of outward rash or injury, diffusely tender, this is mostly in the rib cage and does not involve the scapula or the rhomboids it is lower than that, no midline spinal tenderness. No splinting with deep inspiration. Medical Decison Making PERC score is 0. I think this is all musculoskeletal. We will prescribe him a muscle relaxer, he is advised to continue using NSAIDs and supportive care and follow-up. Other additions or changes: [None] Discharge Plan Triage Chief Complaint: Chest Other ED Midlevel Provider: Yessy Vance ED Provider: Brayan Wong Dx/Rx/DC Orders Clinical Impression: Upper back strain Instructions: ED Back Sprain/Strain Prescriptions: New naproxen 500 mg tablet 500 mg PO BID Qty: 14 0RF orphenadrine citrate 100 mg tablet extended release 100 mg PO BID Qty: 14 0RF No Action multivitamin [Multi-Vitamin] Tablet 1 tab PO DAILY [facility] [Primary Care Provider] - Activity Restrictions/Additional Instructions: Follow-up with PCP and return for any worsening of your symptoms. Disposition Disposition: Home, Self Care Discharge Date/Time: 04/11/23 18:09
--- OUTSIDE RECORDS SUMMARY | 2023-04-11 17:57 | XMS RPT_ITS | CCD ---
Author Name Unknown Address [address] [place] [address] Organization [facility] Care Team Providers Care Information Clerk Brokerage Name Role Phone AVI JADE Admitting Unavailable AVI JADE Attending Unavailable AVI JADE Primary Care Unavailable NO, DOCTOR ON Consulting Unavailable NO, DOCTOR ON Referring Unavailable Results Test Name Value Interpretation Reference Range Facil ity Encounters Encounter Date Encounter Type Care Provider Facility Start: 06-18-2019 End: 06-18-2019 Emergency department patient visit AVI JADE [facility] Procedures Date Procedure Procedure Detail Performing Clinician Start: 06-18-2019 Urinalysis AVI JADE Payers Date Payer Category Payer Unknown [id number] Unknown [id number] Summary Purpose Family History No Family History Records FoundNo Family History Records FoundNo Family History Records Found Advance Directives No Advanced Directives Records FoundNo Advanced Directives Records FoundNo Advanced Directives Records Found Additional Source Comments (unrecognized sect ion and content) No Status Records FoundNo Status Records FoundNo Status Records Found INFORMATION SOURCE (unrecogn ized section and content) DATE CREATED AUTHOR AUTHOR'S ORGANIZ ATION 06/27/2019 [facility] DATE CREATED AUTHOR AUTHOR'S ORGANIZ ATION 07/23/2019 [facility] kirstin Rodriguez FOR RECORDS PERTAINING TO PATIENTS WHO ARE OR HAVE BEEN ENROLLED IN A CHEMICAL DEPENDENCY/SUBSTANCEABUSE PROGRAM, SOME INFORMATION MAY BE OMITTED. This clinical summary was aggregated from multiple sources. Caution should be exercised in using it in the provision of clinical care. This summary normalizes information from multiple sources, and as a consequence, information in this document may materially change the coding, format and clinical context of patient data. In addition, data may be omitted in some cases. CLINICAL DECISIONS SHOULD BE BASED ON THE PRIMARY CLINICAL RECORDS. [facility] [employer] [facility]. provides no warranty or guarantee of the accuracy or completeness of information in this document.
== END 2023-04-11 18:09 | disposition home or self-care (01) ==
LOC: ED 17:55
PROVIDERS: Emergency Provider Emergency Medicine; Visit Provider Emergency Medicine
DX: S29.012A Strain of muscle and tendon of back wall of thorax, initial encounter (principal); X50.0XXA Overexertion from strenuous movement or load, initial encounter; Y92.89 Other specified places as the place of occurrence of the external cause; F17.210 Nicotine dependence, cigarettes, uncomplicated
CPT/HCPCS: 99282

== ENCOUNTER → 2023-05-05 | Outpatient (CLI) | payer OTHER, SELFPAY ==
--- NOTE | 2023-05-05 08:01 | US_ITS ---
STUDY: ABDOMINAL ULTRASOUND - RIGHT UPPER QUADRANT REASON FOR VISIT: Male, 32 years old CONSTANT RUQ AND FLANK PAIN TECHNIQUE: Ultrasound evaluation of the right upper quadrant was performed with real-time and static tavera-scale imaging. TECHNICAL QUALITY: Adequate. COMPARISON: None. FINDINGS: Liver: The liver is enlarged and measures 19.3 cm. There is increased echogenicity consistent with fatty infiltration. The bile ducts are within normal limits. There is hepatic color flow. The direction of portal flow is hepatopetal. There is no demonstrated mass lesion. Gallbladder: Normal distended gallbladder. The gallbladder wall measures 2 mm. There is a negative sonographic Appiah''s sign. There is no pericholecystic fluid. There are no gallstones. Common Bile Duct (C.B.D.): The common bile duct measures 4 mm. Pancreas: Normal size of the head, body and tail of the pancreas. There is normal echogenicity of the pancreas. There is no demonstrated pancreatic mass or cyst. Right Kidney: Normal size of the right kidney. The right kidney measures 12.2 cm x 5.9 cm x 5.6 cm. Normal renal cortex. The right cortex measures 2.4 cm. There is no demonstrated renal mass or cyst. There is no right hydronephrosis. There is a 7 mm x 9 mm x 6 mm nonobstructive stone in the inferior pole of the right kidney. US/Abdomen Limited IMPRESSION: Hepatomegaly and fatty infiltration of the liver. 7 mm x 9 mm x 6 mm nonobstructive calculus in the lower pole calyx of the right kidney. Electronically Signed: Krishna Guzman MD at 12:41 EST ,
--- OUTSIDE RECORDS SUMMARY | 2023-05-05 08:04 | XMS RPT_ITS | CCD ---
Author Name Unknown Address [address] [place] [address] Organization [facility] Care Team Providers Care Rate Inserter Name Role Phone AVI JADE Admitting Unavailable AVI JADE Attending Unavailable AVI JADE Primary Care Unavailable NO, DOCTOR ON Consulting Unavailable NO, DOCTOR ON Referring Unavailable Results Test Name Value Interpretation Reference Range Facil ity Encounters Encounter Date Encounter Type Care Provider Facility Start: 06-18-2019 End: 06-18-2019 Emergency department patient visit AVI JADE [facility] Procedures Date Procedure Procedure Detail Performing Clinician Start: 06-18-2019 Urinalysis AVI JADE Payers Date Payer Category Payer Unknown [id number] Unknown [id number] Summary Purpose Family History No Family History [...] DATE CREATED AUTHOR AUTHOR'S ORGANIZ ATION 06/27/2019 [facility] DATE CREATED AUTHOR AUTHOR'S ORGANIZ ATION 07/23/2019 [facility] kirstin Rodriguez FOR RECORDS PERTAINING TO [...] BE BASED ON THE PRIMARY CLINICAL RECORDS. [facility] [employer] [facility]. provides no warranty or guarantee of the accuracy or completeness of information in this document.
== END | disposition home or self-care (01) ==
LOC: US 07:59
DX: R10.11 Right upper quadrant pain (principal)
CPT/HCPCS: 76705

== ENCOUNTER 2024-04-17 15:40 | Emergency (ER) | payer OTHER, SELFPAY ==
[2024-04-17 15:41] VITALS: BP 169/83; PULSE 93; RESP 15; TEMP 36; O2SAT 95; BMI 44.1
[2024-04-17 16:35] LABS: Absolute Lymphocyte Count 0.85 X10^3/uL (0.83-4.51); Absolute Neutrophil Count 5.1 X10^3/uL (2.0-7.7); Basophil# 0.03 X10^3/uL; Basophil% 0.4 % (0-1); Eosinophil# 0.04 X10^3/uL; Eosinophils% 0.6 % (0-5); Hematocrit 42.9 % (40-54); Hemoglobin 14.7 g/dL (13.0-16.5); Lymphocyte # 0.85 X10^3/ul (0.83-4.51); Lymphocyte % 12.5 % (19-41); Mean Corp Hgb Conc 34.3 g/dL (32-36); Mean Corpuscular Hgb 29.9 pg (27.0-32.0); Mean Corpuscular Volume 87.4 fL (80-94); Mean Platelet Vol. 10.1 fl (6.2-12.0); Monocyte% 11.7 % (0-10); NRBC Flagged by Analyzer 0 % (0-5); Neutrophil # 5.07 X10^3/uL (2.7-7.7); Neutrophil % 74.5 % (47-70); Platelet Count 199 K/mm3 (150-450); RBC Distribution Width CV 12.1 % (11.6-14.6); RBC Distribution Width SD 38.5 fl (35.1-43.9); Red Blood Count 4.91 M/mm3 (4.6-6.2); White Blood Count 6.8 K/mm3 (4.4-11.0)
[2024-04-17 16:42] LABS: ALB/GLOB Ratio 1.1 RATIO (0.9-2.4); AST(SGOT) 21 U/L (15-37); Alanine Aminotransfer ALT/SGPT 39 U/L (16-61); Albumin, Serum 3.9 g/dL (3.2-5.0); Alkaline Phosphatase 97 U/L (45-117); Anion Gap 5 (5-15); BUN 7 mg/dL (7-18); BUN/Creat Ratio 7.2 RATIO (10-20); Calcium,Total 8.8 mg/dL (8.5-10.1); Chloride 106 mmol/L (98-107); Creatinine, Serum 0.97 mg/dL (0.70-1.30); EST Glomerular Filtration Rate 93 mL/min (>60); Est Glom Filt Rate - Afr Amer 113 mL/min (>60); Estimated Creatinine Clearance 163.46 ml/min; Globulin 3.5 g/dL (2.2-4.2); Glucose 95 mg/dL (74-106); Potassium 3.8 mmol/L (3.5-5.1); Protein, Total 7.4 g/dL (6.4-8.2); Sodium Level 139 mmol/L (136-145)
[2024-04-17 17:02] VITALS: O2SAT 95
--- NOTE | 2024-04-17 17:11 | EX.ED.VIS.UR ---
HPI HPI - URI History of Present Illness Chief Complaint: Cough Narrative Narrative: 33-year-old male who denies significant past medical history presents with upper respiratory infection type symptoms that he has had since yesterday morning. She states started in the morning yesterday, and progressed throughout the day. Today he states he has a sickness that he is ever felt. He had subjective fever and chills. He had a cough as well with nasal congestion and occasional runny nose. He has multiple arthralgias and myalgias/body aches. No exacerbating or alleviating factors. He is a smoker. ROS ROS ED ROS Narrative Constitutional: Subjective fevers and chills. HEENT: No sore throat. No neck pain. Positive nasal congestion and rhinorrhea. Cardiovascular: No chest pain. No palpitations. No pedal edema. Respiratory: Positive cough, no shortness of breath. Abdominal: No abdominal pain. No nausea. No vomiting. Musculoskeletal: Positive body aches, multiple myalgias and arthralgias. Neurologic: No headaches. No dizziness. No lightheadedness. Skin: No rash. No change in color. PFSH PFS Medical History History of undescended testicle Home Medications ?Medication ?Instructions ?Recorded ?Last Taken ?Type multivitamin 1 tab PO DAILY 10/24/20 Unknown History naproxen 500 mg tablet 500 mg PO BID #14 tabs 04/11/23 Unknown Rx orphenadrine citrate 100 mg 100 mg PO BID #14 tabs 04/11/23 Unknown Rx tablet,extended release oseltamivir 75 mg capsule (Tamiflu) 75 mg PO BID 5 days #10 caps 04/17/24 Unknown Rx Allergy/AdvReac Type Severity Reaction Status Date / Time No Known Allergies Allergy Verified 04/17/24 15:41 Family History Other Diabetes Hypertension Multiple sclerosis Surgical History History of surgical procedure on eye proper using laser Social History Smoking Status: Current every day smoker tobacco type: cigarettes alcohol intake: current EXAM Physical Exam Narrative Exam Narrative: Afebrile. Vital signs noted. Nontoxic-appearing. Cardiovascular examination reveals a regular rate and rhythm. Lungs clear to auscultation bilaterally, moving a good amount of air, no wheezing. Abdomen soft and nontender. Neurological examination nonfocal and nonlateralizing. Moves all extremities. HEENT examination shows PERRL, EOMI with mild nasal congestion. Airway patent. No drooling or trismus. Const Vital Signs: 04/17/24 15:41 04/17/24 17:02 04/17/24 17:41 Temperature 96.8 F L Temperature Source Oral Pulse Rate 93 77 Respiratory Rate 15 18 Blood Pressure 169/83 H 171/78 H Blood Pressure Mean 111 109 Pulse Ox 95 98 Oxygen Delivery Method Room Air Room Air Room Air 04/17/24 18:58 Temperature Temperature Source Pulse Rate 71 Respiratory Rate 18 Blood Pressure 168/71 H Blood Pressure Mean 103 Pulse Ox Oxygen Delivery Method MDM MDM MDM Narrative Medical decision making narrative: Differential diagnosis includes but not limited to bronchitis versus viral syndrome. I have low suspicion for pneumonia or pneumothorax. Of note, he does have elevated blood pressure but does not have any chest pain or shortness of breath. As he has elevated blood pressure without diagnosis of hypertension, he was told to keep a log of his blood pressures and follow-up with his primary care provider at the [facility]. Laboratory work was drawn per protocol. I reviewed his laboratory work and he has a normal white count of 6.8 with hemoglobin normal at 14.7, platelet count normal at 199. CMP is grossly unremarkable and LFTs were normal. He has normal BUN and creatinine. No feel he requires a chest x-ray. Respiratory swab was obtained and is currently pending. Should he be positive for influenza, I do feel that he would be eligible for Tamiflu because it is within the 48-hour window. His respiratory swab was positive for influenza A. Urinalysis obtained and is negative for infection. At this point in time, he was given his first dose of Tamiflu here and prescription written for the next 5 days. He was written off work for the next 2 days as well. He will follow-up with his primary care provider and continue [id number] medications as needed for pain and fever. Return instructions to the emergency department were reviewed. Disposition is discharged home in stable condition. History & Record Review Discussion w/independent historian: Patient Lab Data Attestation: I reviewed the patient's lab results. Labs: Laboratory Results - last 24 hr 04/17/24 04/17/24 16:22 18:09 WBC 6.8 RBC 4.91 Hgb 14.7 Hct 42.9 MCV 87.4 MCH 29.9 MCHC 34.3 RDW Std Deviation 38.5 RDW Coeff of Jemal 12.1 Plt Count 199 MPV 10.1 Immature Gran % (Auto) 0.300 Neut % (Auto) 74.5 H Lymph % (Auto) 12.5 L [place] % (Auto) 11.7 H Eos % (Auto) 0.6 Baso % (Auto) 0.4 Absolute Neuts (auto) 5.1 Absolute Lymphs (auto) 0.85 Nucleated RBC % 0 Sodium 139 Potassium 3.8 Chloride 106 Carbon Dioxide 28.0 Anion Gap 5 BUN 7 Creatinine 0.97 Estim Creat Clear Calc 163.46 Est GFR (MDRD) Af Amer 113 Est GFR (MDRD) Non-Af 93 BUN/Creatinine Ratio 7.2 L Glucose 95 Calcium 8.8 Total Bilirubin 0.80 AST 21 ALT 39 Alkaline Phosphatase 97 Total Protein 7.4 Albumin 3.9 Globulin 3.5 Albumin/Globulin Ratio 1.1 Urine Color Yellow Urine Clarity Clear Urine pH 6.0 Ur Specific [place] 1.010 Urine Protein 15 H Urine Glucose (UA) Normal Urine Ketones Negative Urine Occult Blood Negative Urine Nitrite Negative Urine Bilirubin Negative Urine Urobilinogen Normal Ur Leukocyte Esterase Negative Urine RBC 0-5 SEEN Urine WBC 0-5 SEEN Ur Squamous Epith Cells 0-5 SEEN Urine Bacteria 0 SEEN Urine Mucus 0 SEEN Discharge Plan Triage Chief Complaint: Cough Other Complaint: Flank Pain ED Provider: Hilario Dunlap Dx/Rx/DC Orders Clinical Impression: Influenza A, Viral syndrome Instructions: ED Influenza (Adult), ED Viral Syndrome (Adult) Prescriptions: New oseltamivir [Tamiflu] 75 mg capsule 75 mg PO BID 5 Days Qty: 10 0RF No Action multivitamin [Multi-Vitamin] Tablet 1 tab PO DAILY naproxen 500 mg tablet 500 mg PO BID Qty: 14 0RF orphenadrine citrate 100 mg tablet extended release 100 mg PO BID Qty: 14 0RF Stand Alone Forms: ED Work / School Excuse [facility]errals: [facility] [Primary Care Provider] - 3-5 Days if not improving Activity Restrictions/Additional Instructions: Rest. Drink plenty of oral fluids. Take Tamiflu as directed. Tylenol and/or ibuprofen as needed for pain and fever. [facility] Return with increased difficulty breathing, new or worsening symptoms. Print Language: [place] Disposition Disposition: Home, Self Care
[2024-04-17 17:41] VITALS: BP 171/78; PULSE 77; RESP 18; O2SAT 98
[2024-04-17 18:25] LABS: Bacteria 0 SEEN /hpf (None Seen); Mucous, Urine 0 SEEN /hpf (<or=2+)
[2024-04-17 18:31] LABS: Color, Urine Yellow (Yellow); Glucose, Dipstick Normal (Normal); Ketone-Dipstick Negative (Negative); Leukocyte Esterase-Dipstick Negative /ul (Negative); Nitrite-Dipstick Negative (Negative); Occult Blood-Urine Negative /ul (Negative); Protein-Dipstick 15 mg/dl (Negative); Urine Bilirubin Dipstick Negative (Negative); Urine Clarity Clear (Clear); Urine Urobilinogen Normal (Normal)
[2024-04-17 18:50] LABS: Red Blood Cells-Urine 0-5 SEEN /hpf (0-5); Squamous Epithelial Cells - UA 0-5 SEEN /hpf (0-5); White Blood Cells 0-5 SEEN /hpf (0-5)
[2024-04-17 18:58] VITALS: BP 168/71; PULSE 71; RESP 18
[2024-04-17] MEDS: Oseltamivir Phosphate 75 MG Capsule PO (19:02)
== END 2024-04-17 19:08 | disposition home or self-care (01) ==
PROVIDERS: Emergency Provider Emergency Medicine; Visit Provider Emergency Medicine
DX: R05.9 Cough, unspecified (principal); J10.1 Influenza due to other identified influenza virus with other respiratory manifestations; B34.9 Viral infection, unspecified; F17.210 Nicotine dependence, cigarettes, uncomplicated
CPT/HCPCS: 80053; 81001; 85025; 87631; 99283; A4216